=== PATIENT | male | born 1985 | race Hispanic/Latino ===

== ENCOUNTER 2021-03-08 12:07 | Emergency (ER) | payer OTHER ==
[~2021-03-08] VITALS: Ht 172.7 cm; Wt 77.1 kg
[2021-03-08] MEDS ORDERED: FLUORESCEIN SOD(OPTH) 1 MG STRP OP ONE (12:45)
[2021-03-08] MEDS ORDERED: TETRACAINE HCL 0.5% OPTH SOLN 4 ML BTL OP ONE (12:45)
== END 2021-03-08 13:15 | disposition home or self-care (01) ==
LOC: ER 12:32
DX: H57.11 Ocular pain, right eye (principal); H00.011 Hordeolum externum right upper eyelid
CPT/HCPCS: 99282